=== PATIENT | female | born 1985 | race Caucasian/White ===

== ENCOUNTER → 2017-07-19 | Outpatient (CLI) | payer OTHER ==
[~2017-07-19] MED LIST: NONE PER PT
== END ==
LOC: STAR 14:33
PROVIDERS: ATTEND Specialist
DX: Z02.9 Encounter for administrative examinations, unspecified (principal)

== ENCOUNTER 2017-07-29 07:19 | Day surgery (SDC) | payer OTHER ==
[~2017-07-29] VITALS: Ht 160 cm; Wt 81.0 kg
[2017-07-29] MEDS ORDERED: LACTATED RINGERS 1,000 ML IV SCH (08:02)
[2017-07-29 08:05] VITALS: BP 113/65
[2017-07-29] MEDS ORDERED: BUPIVACAINE/PF 0.25% ONE (08:52)
[2017-07-29] MEDS ORDERED: EPINEPHRINE 1 MG/ML, 1ML ONE (08:53)
[2017-07-29] MEDS ORDERED: MIDAZOLAM 1 MG/ML, 2ML ONE (08:54)
[2017-07-29] MEDS ORDERED: FENTANYL PF 250 MCG/5ML ONE (08:54)
[2017-07-29] MEDS ORDERED: KETOROLAC 30 MG/1 ML ONE (09:04)
[2017-07-29] MEDS ORDERED: ROCURONIUM 10 MG/ML,10ML ONE (09:04)
[2017-07-29] MEDS ORDERED: PROPOFOL 10 MG/ML, 20ML ONE (09:04)
[2017-07-29] MEDS ORDERED: SUGAMMADEX 200 MG/2 ML IVPush ONE (10:00)
[2017-07-29] MEDS ORDERED: PROMETHAZINE 12.5 MG SUPP PR PRN (10:00)
[2017-07-29] MEDS ORDERED: ALBUTEROL SULFATE 2.5 MG/3 ML NPPB PRN (10:00)
[2017-07-29] MEDS ORDERED: ACETAMINOPHEN 325 MG TABLET PO PRN (10:00)
[2017-07-29] MEDS ORDERED: HYDROmorphone 1 MG/ML, 1ML IV PRN (10:00)
[2017-07-29] MEDS ORDERED: hydrALAzine 20 MG/ML, 1ML IV PRN (10:00)
[2017-07-29] MEDS ORDERED: PROMETHAZINE 25 MG/ML, 1ML IV PRN (10:00)
[2017-07-29] MEDS ORDERED: OXYcodone 5 MG/5 ML ORAL.SOL UDC PO PRN (10:00)
[2017-07-29] MEDS ORDERED: morphine SULFATE 10 MG/ML, 1ML IV PRN (10:00)
[2017-07-29] MEDS ORDERED: LORazepam 2 MG/ML, 1ML IVPush PRN (10:00)
[2017-07-29] MEDS ORDERED: LABETALOL 5MG/ML, 20ML IV PRN (10:00)
[2017-07-29] MEDS ORDERED: MEPERIDINE/PF 25MG/0.5ML IVPush PRN (10:00)
[2017-07-29] MEDS: FENTANYL PF 100 MCG/2ML IV PRN ×2 (10:10→10:15)
[2017-07-29] MEDS ORDERED: ACETAMINOPHEN 650 MG/20.3 ML UDC ONE (10:15)
[2017-07-29] MEDS ORDERED: OXYcodone 5 MG/5 ML ORAL.SOL UDC ONE (10:15)
[2017-07-29] MEDS ORDERED: FENTANYL PF 100 MCG/2ML ONE ×2 (10:15→15:46)
[2017-07-29 10:36] LABS: HCG UR SG 1.018 (1.003-1.030)
[2017-07-29] MEDS ORDERED: ONDANSETRON 2MG/ML, 2ML ONE (15:38)
[2017-07-29] MEDS ORDERED: LABETALOL 5MG/ML, 20ML ONE (15:38)
[2017-07-29] MEDS ORDERED: DEXAMETHASONE 4 MG/ML, 1ML ONE ×2 (15:38)
[2017-07-29] MEDS ORDERED: CEFAZOLIN 1,000 MG ONE ×2 (15:39)
== END 2017-07-29 12:00 ==
LOC: OUT 07:19
PROVIDERS: ATTEND Specialist
DX: N73.6 Female pelvic peritoneal adhesions (postinfective) (principal); N94.6 Dysmenorrhea, unspecified; Z90.49 Acquired absence of other specified parts of digestive tract; Z98.890 Other specified postprocedural states
CPT/HCPCS: 49320; 81025; J0171; J0690; J1100; J1885; J2250; J2405; J2704; J3010; J3490; J7120

== ENCOUNTER 2017-10-29 15:14 | Emergency (ER) | payer OTHER ==
[~2017-10-29] VITALS: Ht 160 cm; Wt 82.0 kg
[2017-10-29 15:24] VITALS: BP 102/57
[2017-10-29] MEDS ORDERED: KETOROLAC 30 MG/1 ML IVPush ONE (15:30)
[2017-10-29] MEDS ORDERED: SODIUM CHLORIDE FLUSH 10ML SYR IVF ONE (15:30)
[2017-10-29] MEDS ORDERED: ONDANSETRON ODT 4 MG PO ONE (15:30)
[2017-10-29 15:53] LABS: BASOPHILS # (AUTO) 0.01 x10^3/uL (0-0.1); BASOPHILS % (AUTO) 0 % (0-1); EOSINOPHILS # (AUTO) 0.08 x10^3/uL (0-0.4); EOSINOPHILS % (AUTO) 1 % (1-7); LYMPHOCYTES # (AUTO) 2.37 x10^3/uL (1-3.4); LYMPHOCYTES % (AUTO) 21 % (22-44); MD NO; MEAN CORPUSCULAR HEMOGLOBIN 28.1 pg (27.0-34.8); MEAN CORPUSCULAR HGB CONC 33.6 g/dL (32.4-35.8); MEAN CORPUSCULAR VOLUME 83.6 fL (80-100); MEAN PLATELET VOLUME 8.1 fL (7.4-10.4); MONOCYTES # (AUTO) 0.46 x10^3/uL (0.2-0.8); MONOCYTES % (AUTO) 4 % (2-9); NEUTROPHILS % (AUTO) 74 % (42-75); PLATELET COUNT 340 x10^3/uL (130-400); RED BLOOD COUNT 4.31 x10^6/uL (3.82-5.3); RED CELL DISTRIBUTION WIDTH 13.4 % (9.6-15.2)
[2017-10-29] MEDS ORDERED: KETOROLAC 30 MG/1 ML ONE (15:54)
[2017-10-29] MEDS ORDERED: ONDANSETRON ODT 4 MG ONE (15:54)
[2017-10-29] MEDS ORDERED: PLEASE ENTER HEIGHT AND WEIGHT MC SCH (16:00)
[2017-10-29 16:05] LABS: ALBUMIN 3.4 g/dL (3.4-5.0); ANION GAP 7 mmol/L (5-15); CALCIUM 8.9 mg/dL (8.5-10.1); CHLORIDE 108 mmol/L (98-107); CREATININE 1.11 mg/dL (0.55-1.02)
== END 2017-10-29 17:02 | disposition home or self-care (01) ==
LOC: ED 17:01
DX: N92.4 Excessive bleeding in the premenopausal period (principal); N92.0 Excessive and frequent menstruation with regular cycle
CPT/HCPCS: 36415; 76830; 80048; 82040; 84702; 85025; 96374; 99285; J1885; Q0162

== ENCOUNTER 2019-03-01 19:06 | Emergency (ER) | payer OTHER ==
[~2019-03-01] VITALS: Ht 160 cm; Wt 97.8 kg
--- NOTE | 2019-03-01 20:32 | NUR ---
PATIENT EDUCATOR: Patient to room from lobby at this time.
--- NOTE | 2019-03-01 20:55 | NUR ---
er law in to assess pt
--- NOTE | 2019-03-01 21:21 | NUR ---
left calf swelling and pain with palpation that started around 0400 this morning. difficulty walking.
[2019-03-01] MEDS ORDERED: OXYcodone/APAP 5/325MG TABLET ONE (21:56)
--- NOTE | 2019-03-01 21:59 | NUR ---
pt medicated for pain per emar.
[2019-03-01] MEDS ORDERED: OXYcodone/APAP 5/325MG TABLET PO ONE (22:00)
[2019-03-01 23:28] VITALS: BP 106/52
--- NOTE | 2019-03-01 23:28 | NUR ---
PT STATES HE PAIN HAS IMPROVED AND IS NOW A 7/.
== END 2019-03-01 23:39 | disposition home or self-care (01) ==
LOC: ED 23:30
DX: S86.912A Strain of unspecified muscle(s) and tendon(s) at lower leg level, left leg, initial encounter (principal); X58.XXXA Exposure to other specified factors, initial encounter; Y93.89 Activity, other specified; Y92.89 Other specified places as the place of occurrence of the external cause; Y99.8 Other external cause status
CPT/HCPCS: 99284

== ENCOUNTER 2019-04-11 16:38 | Emergency (ER) | payer OTHER ==
[~2019-04-11] VITALS: Ht 160 cm; Wt 79.0 kg
[2019-04-11 16:39] VITALS: BP 131/78
[2019-04-11 17:10] LABS: RAPID INFLUENZA A Negative (Negative); RAPID INFLUENZA B POSITIVE (Negative)
--- NOTE | 2019-04-11 17:41 | NUR ---
PT STATES PT HAS HAD COUGHING AND RUNNY NOSE FOR THREE WEEKS. PT C/O CHEST TIGHTNESS D/T COUGHING. PT +FLU ON RAPID FLU.
[2019-04-11] MEDS ORDERED: ONDANSETRON ODT 8 MG ONE (18:29)
[2019-04-11] MEDS ORDERED: DEXAMETHASONE 4 MG TABLET ONE (18:29)
[2019-04-11] MEDS ORDERED: ACETAMINOPHEN 500 MG TABLET PO ONE (18:30)
[2019-04-11] MEDS ORDERED: ONDANSETRON ODT 8 MG PO ONE (18:30)
[2019-04-11] MEDS ORDERED: DEXAMETHASONE 4 MG TABLET PO ONE (18:30)
[2019-04-11] MEDS ORDERED: ACETAMINOPHEN 500 MG TABLET ONE (18:30)
[2019-04-11] MEDS ORDERED: ALBUTEROL/IPRATROPIUM 2.5MG/0.5MG, 3 ML NPPB ONE (18:30)
--- NOTE | 2019-04-11 18:33 | NUR ---
PT MEDICATED PER JUL, WAITING ON RT TX FOR PT TO DC HOME
== END 2019-04-11 18:58 | disposition home or self-care (01) ==
LOC: ED 18:22
DX: J10.1 Influenza due to other identified influenza virus with other respiratory manifestations (principal); R11.10 Vomiting, unspecified; R07.89 Other chest pain; H92.09 Otalgia, unspecified ear; Z72.89 Other problems related to lifestyle; Z98.51 Tubal ligation status
CPT/HCPCS: 71046; 87400; 94640; 99284; J7620; Q0162

== ENCOUNTER 2020-10-08 15:21 | Emergency (ER) | payer OTHER ==
[~2020-10-08] VITALS: Ht 157.5 cm; Wt 82.3 kg
--- NOTE | 2020-10-08 17:37 | NUR ---
digital production manager: pt from lobby to room 21
[2020-10-08] MEDS ORDERED: HYDROcodone/APAP 5/325 TABLET ONE (18:46)
[2020-10-08] MEDS ORDERED: DEXAMETHASONE 4 MG/ML, 1ML ONE (18:46)
[2020-10-08] MEDS ORDERED: KETOROLAC 60 MG/2 ML ONE (18:46)
[2020-10-08 18:57] VITALS: BP 107/68
[2020-10-08] MEDS ORDERED: DEXAMETHASONE 4 MG/ML, 1ML IM ONE (19:00)
[2020-10-08] MEDS ORDERED: KETOROLAC 30 MG/1 ML IM ONE (19:00)
[2020-10-08] MEDS ORDERED: HYDROcodone/APAP 5/325 TABLET PO ONE (19:00)
== END 2020-10-08 19:01 | disposition home or self-care (01) ==
LOC: ED 18:26
DX: S39.012A Strain of muscle, fascia and tendon of lower back, initial encounter (principal); M54.16 Radiculopathy, lumbar region; X50.0XXA Overexertion from strenuous movement or load, initial encounter; Y93.89 Activity, other specified; Y92.89 Other specified places as the place of occurrence of the external cause; Y99.8 Other external cause status
CPT/HCPCS: 72220; 96372; 99284; J1100; J1885